=== PATIENT | female | born 1960 | race Caucasian/White ===

== ENCOUNTER 2021-02-27 09:54 | Observation (INO) | payer BC ==
[~2021-02-27] VITALS: Ht 162.6 cm; Wt 87.1 kg
[~2021-02-27 09:54] MED LIST: AMLODIPINE BESYL5 MG PO; ASPIRIN 325MG325 MG PO; ASPIRIN EC81 MG PO; CARTIA XT120 MG PO; ELIQUIS 5 MG TAB5 MG PO; TIKOSYN250 MCG PO; VITAMIN D350 MCG PO
[2021-02-27 10:40] LABS: HEMOGLOBIN 13.9 gm/dl (12.3-15.3); RED BLOOD COUNT 4.31 M/UL (4.00-5.10); WHITE BLOOD COUNT 8.8 K/UL (4.5-11.0)
[2021-02-27 11:04] LABS: BUN/CREATININE RATIO 20 (0-10)
[2021-02-27] MEDS ORDERED: ELIQUIS5 MG PO (13:01)
[2021-02-27] MEDS ORDERED: ISOSORBIDE MONO10 MG PO (13:01)
[2021-02-27] MEDS ORDERED: LOPRESSOR 25 MG25 MG PO (13:02)
[2021-02-28 07:00] LABS: HEMOGLOBIN 14.1 gm/dl (12.3-15.3); RED BLOOD COUNT 4.47 M/UL (4.00-5.10); WHITE BLOOD COUNT 7.3 K/UL (4.5-11.0)
== END 2021-02-28 12:50 | disposition home or self-care (01) ==
LOC: ER1 09:54 → CDU 12:13 → MED SURG 4 12:13
PROVIDERS: Emergency Medicine; Physician Assistant; ADMIT Internal Medicine
DX: R07.89 Other chest pain (principal); I48.0 Paroxysmal atrial fibrillation; I27.20 Pulmonary hypertension, unspecified; I10 Essential (primary) hypertension; Z20.822 Contact with and (suspected) exposure to COVID-19; Z79.01 Long term (current) use of anticoagulants; Z79.899 Other long term (current) drug therapy; Z86.79 Personal history of other diseases of the circulatory system; Z90.710 Acquired absence of both cervix and uterus; Z82.49 Family history of ischemic heart disease and other diseases of the circulatory system
CPT/HCPCS: 36415; 71045; 80048; 80053; 82550; 82553; 83874; 84484; 85025; 93005; 99285; G0378; U0002